=== PATIENT | male | born 1935 | race Two or more races ===

== ENCOUNTER 2020-01-01 18:10 | Emergency (ER) | payer MEDICARE, BC ==
[~2020-01-01] VITALS: Ht 182.9 cm; Wt 85.0 kg
[~2020-01-01 18:10] MED LIST: ASPI-496 PO; ATOR40TA78 PO; CARV12.5 PO; DOCU100T6 PO; DRON400T PO; LEVO500T8 PO; LISI-170 PO; OMEP20TA62 PO; ONDA4TAB13 SL; ONDA4TAB7 PO; PREG100C49 PO; PROM25TA10 PO; RIVA15TA PO; SUCR1ORA14 PO; TRAZ-96 PO
--- NOTE | 2020-01-01 18:27 | NUR ---
BIB [facility], PT WITH C/O DIFUSE ABD DISCOMFORT AND NAUSEA SINCE SEPTEMBER. HX GALLBLADDER REMOVAL IN September. HS PUD. DENIES D/V. 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 ERMD IN TO EVAL PT. PT TO BP, CONT PULSE OX, CARD MONTIOR
[2020-01-01] MEDS ORDERED: SODIUM CHLORIDE 0.9% 1,000ML IVBOLUS ONE (19:00)
[2020-01-01] MEDS ORDERED: SODIUM CHLORIDE FLUSH 10ML SYR IVF ONE (19:00)
--- NOTE | 2020-01-01 19:04 | NUR ---
Report received from KAYCE Urbina. This RN to assume care. Patient in xray at this time.
[2020-01-01 19:12] LABS: BASOPHILS # (AUTO) 0.05 x10^3/uL (0-0.1); BASOPHILS % (AUTO) 1 % (0-1); EOSINOPHILS # (AUTO) 0.36 x10^3/uL (0-0.4); EOSINOPHILS % (AUTO) 5 % (1-7); LYMPHOCYTES # (AUTO) 1.62 x10^3/uL (1-3.4); LYMPHOCYTES % (AUTO) 24 % (22-44); MD NO; MEAN CORPUSCULAR HEMOGLOBIN 26.2 pg (27.5-34.5); MEAN CORPUSCULAR HGB CONC 31.5 g/dL (33.2-36.2); MEAN PLATELET VOLUME 7.7 fL (7.4-10.4); MONOCYTES # (AUTO) 0.73 x10^3/uL (0.2-0.8); MONOCYTES % (AUTO) 11 % (2-9); NEUTROPHILS # (AUTO) 4.13 x10^3/uL (1.8-6.8); NEUTROPHILS % (AUTO) 60 % (42-75); PLATELET COUNT 316 x10^3/uL (130-400); RED BLOOD COUNT 3.94 x10^6/uL (4.38-5.82); RED CELL DISTRIBUTION WIDTH 19.5 % (9.4-14.8)
--- NOTE | 2020-01-01 19:23 | NUR ---
[facility] [phone]
[2020-01-01 19:24] LABS: ALANINE AMINOTRANSFERASE 14 U/L (12-78); ALBUMIN 2.9 g/dL (3.4-5.0); ANION GAP 4 mmol/L (5-15); CHLORIDE 111 mmol/L (98-107); CREATININE 1.57 mg/dL (0.7-1.3)
[2020-01-01 19:26] LABS: ALKALINE PHOSPHATASE 77 U/L (45-117); BILIRUBIN,TOTAL 0.4 mg/dL (0.2-1.0); TOTAL PROTEIN 6.9 g/dL (6.4-8.2)
--- NOTE | 2020-01-01 19:32 | NUR ---
Spoke with patient's , Estephania. 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 They said he had a "twisted stomach and a hernia" along with PUD. He was not treated for those because he had just had recent hip surgery and cholecystectomy; hospital admission from 12/14 to 12/20.
[2020-01-01] MEDS ORDERED: OXYcodone/APAP 5/325MG TABLET ONE (21:18)
[2020-01-01] MEDS ORDERED: ONDANSETRON ODT 4 MG ONE (21:18)
[2020-01-01] MEDS ORDERED: MORPHINE SULFATE 4 MG/ML, 1ML ONE (21:29)
[2020-01-01] MEDS ORDERED: OXYcodone/APAP 5/325MG TABLET PO ONE (21:30)
[2020-01-01] MEDS ORDERED: ONDANSETRON ODT 4 MG PO ONE (21:30)
[2020-01-01 21:31] VITALS: BP 197/119
[2020-01-01] MEDS ORDERED: MORPHINE SULFATE 4 MG/ML, 1ML IVPush PRN (22:00)
--- NOTE | 2020-01-01 22:29 | NUR ---
Discharge instructions given. All questions and concerns addressed. Wheeled patient to car in wheelchair. Belongings with patient.
== END 2020-01-01 22:30 | disposition home or self-care (01) ==
LOC: ED 18:40
DX: K25.3 Acute gastric ulcer without hemorrhage or perforation (principal); R11.2 Nausea with vomiting, unspecified; I48.91 Unspecified atrial fibrillation; Z90.49 Acquired absence of other specified parts of digestive tract; Z85.46 Personal history of malignant neoplasm of prostate; Z87.11 Personal history of peptic ulcer disease
CPT/HCPCS: 36415; 74021; 80053; 83690; 85025; 93005; 96361; 96374; 99285; J2270; J7030; Q0162